=== PATIENT | female | born 1985 | race Caucasian/White ===

== ENCOUNTER → 2022-01-02 11:56 | Outpatient (CLI) | payer OTHER, SELFPAY | PROVIDERS: Referring Provider Internal Medicine; Visit Provider Internal Medicine | DX: Z23 Encounter for immunization (principal) | CPT/HCPCS: 90471; 90686 ==

== ENCOUNTER → 2022-07-09 14:50 | Outpatient (CLI) | payer OTHER, SELFPAY ==
[2022-07-14 17:06] LABS: QuantiFERON Mitogen Value >10.00 IU/mL (.); QuantiFERON Nil Value 0.06 IU/mL (.); QuantiFERON TB Gold Plus Negative (Negative); QuantiFERON TB1 Ag Value 0.07 IU/mL (.); QuantiFERON TB2 Ag Value 0.06 IU/mL (.)
== END ==
PROVIDERS: PCP Family Medicine; Referring Provider Dermatology; Visit Provider Dermatology
DX: L40.0 Psoriasis vulgaris (principal)
CPT/HCPCS: 36415; 86480

== ENCOUNTER → 2022-11-11 06:34 | Outpatient (CLI) | payer OTHER, SELFPAY ==
[2022-11-11 08:29] LABS: Add Manual Diff / Slide Review NO; Basophils Absolute Auto 0 /uL (0-100); Basophils Percent Auto 0.7 % (0-2); Eosinophils Absolute Auto 100 /uL (0-450); Eosinophils Percent Auto 2.3 % (2-4); Hematocrit 35.9 % (36-46); Hemoglobin 12.4 g/dL (12.0-16.0); Lymphocytes Absolute Auto 1600 /uL (1100-4500); Lymphocytes Percent Auto 26.5 % (25-40); Mean Corpuscular HGB Conc 34.5 % (30-36); Mean Corpuscular Hemoglobin 29.4 PG (26-34); Mean Corpuscular Volume 85.3 fL (80-100); Monocytes Absolute Auto 400 /uL (0-900); Neutrophils Absolute Auto 3800 /uL (1500-7000); Neutrophils Percent Auto 63.5 % (50-75); Platelet Count 296 X10^3/uL (150-400); Red Blood Cell Count 4.21 X10^6/uL (4.0-5.2); Red Cell Distribution Width 13.2 % (11.6-14.8); White Blood Cell Count 6.1 X10^3/uL (4.5-11.0)
[2022-11-11 08:32] LABS: Alanine Aminotransferase 19 IU/L (<35); Albumin 4.1 g/dL (3.5-5.0); Albumin Globulin Ratio 1.6 (1.0-2.8); Alkaline Phosphatase 58 U/L (38-126); Aspartate Aminotransferase 22 IU/L (14-36); BUN Creatinine Ratio 14.5 (6-22); Bilirubin Total 1.1 mg/dL (0.2-1.3); Blood Urea Nitrogen 12 mg/dL (7-17); Calcium 9.3 mg/dL (8.4-10.2); Carbon Dioxide 29 mmol/L (22-32); Chloride 100 mmol/L (98-107); Cholesterol 162 mg/dL (140-199); Estimated Glomerular Filt Rate > 60 mL/min (>60); Globulin 2.5 g/dL (1.7-4.1); Glucose 76 mg/dL (70-100); HDL Cholesterol 90 mg/dL (40-60); HEMOLYSIS < 15 (0-50); LDL Cholesterol Calculated 59 mg/dL (<100); Potassium 3.8 mmol/L (3.4-5.1); Sodium 135 mmol/L (137-145); Total Protein 6.6 g/dL (6.3-8.2); Triglycerides 63 mg/dL (35-150)
[2022-11-11 08:49] LABS: Creatinine Urine Random 291.7 mg/dL
[2022-11-11 08:54] LABS: Microalbumi Creatinin Ratio Ur 3.4 ug/mg CR (<30)
[2022-11-11 09:03] LABS: TSH w/ Reflex to FT4 1.29 uIU/mL (0.47-4.68)
== END ==
PROVIDERS: PCP Family Medicine; Referring Provider Family Medicine; Visit Provider Family Medicine
DX: F41.8 Other specified anxiety disorders (principal); F90.9 Attention-deficit hyperactivity disorder, unspecified type; L40.50 Arthropathic psoriasis, unspecified; L40.9 Psoriasis, unspecified; L68.0 Hirsutism
CPT/HCPCS: 36415; 80053; 80061; 82043; 82570; 84443; 85025

== ENCOUNTER → 2023-01-07 03:54 | Outpatient (CLI) | payer OTHER, SELFPAY | PROVIDERS: PCP Family Medicine; Referring Provider Family Medicine; Visit Provider Family Medicine | DX: Z23 Encounter for immunization (principal) | CPT/HCPCS: 90471; 90686 ==

== ENCOUNTER → 2023-05-17 10:25 | Outpatient (CLI) | payer OTHER, SELFPAY ==
[2023-05-17 11:08] LABS: Add Manual Diff / Slide Review NO; Basophils Absolute Auto 100 /uL (0-100); Basophils Percent Auto 0.8 % (0-2); Eosinophils Absolute Auto 0 /uL (0-450); Eosinophils Percent Auto 0.6 % (2-4); Hematocrit 38.3 % (36-46); Lymphocytes Absolute Auto 1100 /uL (1100-4500); Lymphocytes Percent Auto 17.6 % (25-40); Mean Corpuscular HGB Conc 33.9 % (30-36); Mean Corpuscular Hemoglobin 28.5 PG (26-34); Mean Corpuscular Volume 84.1 fL (80-100); Monocytes Absolute Auto 400 /uL (0-900); Monocytes Percent Auto 5.7 % (3-14); Neutrophils Absolute Auto 4600 /uL (1500-7000); Neutrophils Percent Auto 75.3 % (50-75); Platelet Count 290 X10^3/uL (150-400); Red Blood Cell Count 4.55 X10^6/uL (4.0-5.2); Red Cell Distribution Width 13.4 % (11.6-14.8); White Blood Cell Count 6.2 X10^3/uL (4.5-11.0)
[2023-05-17 12:15] LABS: Pregnancy Test Urine Negative (Negative)
[2023-05-17 12:18] LABS: Alanine Aminotransferase 18 IU/L (<35); Albumin 3.9 g/dL (3.5-5.0); Albumin Globulin Ratio 1.3 (1.0-2.8); Alkaline Phosphatase 56 U/L (38-126); Aspartate Aminotransferase 19 IU/L (14-36); BUN Creatinine Ratio 10.5 (6-22); Bilirubin Total 0.7 mg/dL (0.2-1.3); Blood Urea Nitrogen 8 mg/dL (7-17); Calcium 9.3 mg/dL (8.4-10.2); Carbon Dioxide 25 mmol/L (22-32); Chloride 104 mmol/L (98-107); Estimated Glomerular Filt Rate > 60 mL/min (>60); Globulin 2.9 g/dL (1.7-4.1); Glucose 94 mg/dL (70-100); HEMOLYSIS < 15 (0-50); Lipase 362 U/L (23-300); Phosphorous 2.6 mg/dL (2.5-4.5); Potassium 3.6 mmol/L (3.4-5.1); Sodium 138 mmol/L (137-145); Total Protein 6.8 g/dL (6.3-8.2)
[2023-05-17 12:24] LABS: Vitamin D 25 Hydroxy (D3) 42.7 ng/mL (30.0-100.0)
[2023-05-17 12:45] LABS: TSH w/ Reflex to FT4 0.79 uIU/mL (0.47-4.68)
[2023-05-17 13:06] LABS: Vitamin B12 > 1000 pg/mL (239-931)
== END ==
LOC: LAB 10:26
PROVIDERS: PCP Family Medicine; Referring Provider Family Medicine; Visit Provider Family Medicine
DX: Z90.3 Acquired absence of stomach [part of] (principal); R10.9 Unspecified abdominal pain; Z80.0 Family history of malignant neoplasm of digestive organs; K59.00 Constipation, unspecified; L40.50 Arthropathic psoriasis, unspecified; F41.8 Other specified anxiety disorders; F90.9 Attention-deficit hyperactivity disorder, unspecified type
CPT/HCPCS: 36415; 80053; 81025; 82306; 82607; 83690; 84100; 84443; 85025

== ENCOUNTER → 2023-05-18 07:51 | Outpatient (CLI) | payer OTHER, SELFPAY ==
[2023-05-21 14:08] LABS: Lactoferrin, Fecal Quant 65.23 ug/mL(g) (0.00-7.24)
[2023-05-21 16:08] LABS: Calprotectin, Stool 697 ug/g (0-120)
[2023-05-25 11:11] LABS: Pancreatic Elastase, Fecal 380 (>200)
== END ==
PROVIDERS: PCP Family Medicine; Referring Provider Family Medicine; Visit Provider Family Medicine
DX: Z90.3 Acquired absence of stomach [part of] (principal); R10.9 Unspecified abdominal pain; Z80.0 Family history of malignant neoplasm of digestive organs; L40.50 Arthropathic psoriasis, unspecified; K59.00 Constipation, unspecified; F41.8 Other specified anxiety disorders; F90.9 Attention-deficit hyperactivity disorder, unspecified type
CPT/HCPCS: 82656; 83631; 83993

== ENCOUNTER 2023-07-23 12:41 | Day surgery (SDC) | payer OTHER, SELFPAY ==
--- NOTE | 2023-07-23 | PATH_ITS ---
[facility] Accession Number: [id number] No. of containers..02 Tissue . 01 Material submitted: . PART A: ileum - TERMINAL ILEUM PART B: colon - RANDOM COLON BIOPSIES . 01 Diagnosis: A. TERMINAL ILEUM, BIOPSY: Ileal mucosa with reactive lymphoid hyperplasia. Negative for active inflammation, granulomas, dysplasia, or malignancy. . B. RANDOM COLON, BIOPSY: Colonic mucosa with no diagnostic abnormality. Negative for active, chronic, and microscopic colitis. Negative for dysplasia and malignancy. [facility] 07/30/2023 1421 Local . 01 Electronically signed: . Mian Coffman MD, PhD, Pathologist NPI- [id number] . 01 Gross description: . Part A: TERMINAL ILEUM: Received in formalin is 1 fragment(s) of krishnan, soft tissue measuring 0.4 x 0.4 x 0.2 cm submitted entirely in 1 cassette(s) Part B: RANDOM COLON BIOPSIES: Received in formalin are multiple fragment(s) of krishnan, soft tissue measuring 0.2 x 0.2 x 0.2 cm to 0.5 x 0.3 x 0.3 cm submitted entirely in 1 cassette(s) /SARAH 07/27/2023 0006 Local . 01 Pathologist provided ICD-10: R10.9, K59.00 . 01 CPT . 870488, 103199 Specimen Comment: A courtesy copy of this report has been sent to [phone] Performed at: 01 [facility] [address] [place] [id number] MD Vinicio Hooper MD Phone: [phone]
[2023-07-23 13:03] VITALS: BP 112/74; PULSE 89; RESP 18; TEMP 36.8; O2SAT 100
[2023-07-23] MEDS: LACTATED RINGERS 1,000 ML 42 ML IV (13:23)
--- NOTE | 2023-07-23 13:37 | PM.HP.1 ---
History of Present Illness History of Present Illness Date Patient Seen: 07/23/23 Time Patient Seen: 13:38 [place] [facility] [place]: 38-year-old woman family history of colon cancer and history of gastric sleeve here for diagnostic colonoscopy. No interval change in health, please refer to the H& P from June 2023 for further detail. [facility] Medical History Sinus tachycardia Hirsutism Psoriatic arthritis Mixed anxiety and depressive disorder Psoriasis Depression Anxiety ADHD (~2012) Chicken pox Endometriosis (~2004) Surgical History Anesthesia History of tonsillectomy (~1989) History of sinus surgery (~2019) Hx of laparoscopic gastric banding (~2014) H/O gastric sleeve (~2021) Family History Mother Mental health problem Brother Cancer Grandfather Cancer Grandmother Cancer Mental health problem Grandfather Stroke Social History marital status: number of children: 1 household members: spouse and children lives independently: Yes occupational status: employed Smoking Status: Never smoker alcohol intake: current substance use type: does not use Meds Home Medications and Allergies Home Medications Medication Instructions Recorded Confirmed Type betamethasone dipropionate 0.05 % 1 applic topical DAILY PRN 04/23/22 07/16/23 Rx topical cream psoriasis #45 grams secukinumab 150 mg/mL subcutaneous See Rx Instructions .Route 11/05/22 07/23/23 History pen injector (Cosentyx Pen 300 .COMPLEX psoriiasis mg/2 Pens () bupropion HCl 300 mg 24 hr tablet, 300 mg PO QAM #90 tabs 03/05/23 07/23/23 Rx extended release (Wellbutrin XL) alprazolam 0.5 mg tablet (Xanax) 0.5 mg PO BID PRN anxiety #30 tabs 03/12/23 07/23/23 Rx ondansetron 4 mg disintegrating 4 mg PO Q8H PRN nausea and 05/10/23 07/23/23 Rx tablet vomiting #90 tabs spironolactone 50 mg tablet 50 mg PO DAILY #90 tabs 05/10/23 07/23/23 Rx dextroamphetamine-amphetamine 20 20 mg PO BID #60 tabs 06/18/23 07/23/23 Rx mg tablet (Adderall) dextroamphetamine-amphetamine 20 20 mg PO BID #60 tabs 06/18/23 07/23/23 Rx mg tablet (Adderall) dextroamphetamine-amphetamine 20 20 mg PO BID #60 tabs 06/18/23 07/23/23 Rx mg tablet (Adderall) peg 3350-electrolytes 236 240 ml PO Q10M #4,000 mL 06/18/23 07/23/23 Rx gram-22.74 gram-6.74 gram-5.86 gram solution (Golytely) Allergies Allergy/AdvReac Type Severity Reaction Status Date / Time amoxicillin AdvReac Intermediate Nausea Verified 07/23/23 12:56 Exam Vital Signs (past 8 hours): - 07/23/23 13:03 Temperature 98.3 F Pulse Rate 89 Respiratory Rate 18 Blood Pressure 112/74 Pulse Oximetry 100 Oxygen Delivery Method Room Air Oxygen Delivery Method Room Air Narrative Exam Narrative: General adult woman alert oriented no acute distress Chest nonlabored respiration Extremities warm well perfused Assessment & Plan Assessment and plan (1) Abdominal pain: Qualifiers: Abdominal location: lower abdomen, unspecified Qualified Code(s): R10.30 - Lower abdominal pain, unspecified Status: Acute Assessment & Plan narrative: Diagnostic colonoscopy. Risks benefits alternatives reviewed.
[2023-07-23 14:32] VITALS: BP 88/57; PULSE 69; RESP 15; TEMP 36.2; O2SAT 100
--- NOTE | 2023-07-23 14:36 | P.OP.COLON_ITS ---
Operative Date/Time/Diagnoses Date of procedure: 07/23/23 Time of procedure: 14:36 Pre-op diagnosis: Abdominal pain Procedure & Clinicians Study performed: Diagnostic colonoscopy Same procedure as scheduled: Yes Indications: Abdominal pain Surgeon: Michelet Wheatley Procedure Notes Procedure in detail: The history and physical was performed/updated and the patient is ASA class is 2. The procedure was discussed in detail with the patient. Potential risks complications including infection, bleeding, missed diagnosis, perforation, need for surgery, and were explained. Their questions were answered and informed consent was obtained. Patient was brought to the procedure room and placed standard monitoring equipment. The patient's vital signs were monitored continuously throughout the entire procedure. Prior to starting time-out was performed. The patient was placed in the left lateral recumbent position. Procedural sedation was administered by anesthesia. Examination began with a thorough inspection of the perianal area there was no evidence of fissures, fistulae, external hemorrhoids or cutaneous malignancy. The colonoscopy scope was then placed into the anal canal and was advanced to the cecum, which was identified by the ileocecal valve, the appendiceal orifice and the confluence of the taenia. Terminal ileum was intubated and biopsies were taken with forceps. The scope was then slowly withdrawn examining colon thoroughly in all directions, irrigating it of any residual stool. Random colonic biopsies were taken with forceps. The scope was retroflexed within the rectum The patient tolerated the procedure well. They will be discharged once criteria are met. The prep was of good/excellent quality. The withdrawl time was 7 minutes. FINDINGS * Unremarkable colonoscopy. No masses polyps or inflammation. * Unremarkable terminal ileum Specimen(s): other (Terminal ileum, random colonic biopsies) Impression: Normal colonoscopy Post-procedure Plan for aftercare: Will update with pathology results Disposition: same day surgery
[2023-07-23 14:38] VITALS: BP 99/58; PULSE 71; RESP 18; O2SAT 100
[2023-07-23 14:42] VITALS: BP 96/57; PULSE 70; RESP 16; O2SAT 100
[2023-07-23 14:47] VITALS: BP 98/59; PULSE 67; RESP 21; TEMP 36.7; O2SAT 100
== END 2023-07-23 15:10 | disposition home or self-care (01) ==
PROVIDERS: PCP Family Medicine; Referring Provider Surgery; Visit Provider Surgery
PROC: 0DJD8ZZ Inspection of Lower Intestinal Tract, Via Natural or Artificial Opening Endoscopic (ICD-10-PCS; CPT 45378; principal; 2023-07-23 13:30)
DX: R10.30 Lower abdominal pain, unspecified (principal); Z80.0 Family history of malignant neoplasm of digestive organs; K59.00 Constipation, unspecified
CPT/HCPCS: 45380; J2704

== ENCOUNTER → 2023-09-20 16:17 | Outpatient (CLI) | payer OTHER, SELFPAY ==
[2023-09-21 22:38] LABS: QuantiFERON Mitogen Value >10.00 IU/mL (.); QuantiFERON Nil Value 0.03 IU/mL (.); QuantiFERON TB Gold Plus Negative (Negative); QuantiFERON TB1 Ag Value 0.05 IU/mL (.); QuantiFERON TB2 Ag Value 0.05 IU/mL (.)
== END ==
PROVIDERS: PCP Family Medicine; Referring Provider Dermatology; Visit Provider Dermatology
DX: L40.0 Psoriasis vulgaris (principal)
CPT/HCPCS: 36415; 86480

== ENCOUNTER → 2024-01-14 17:59 | Outpatient (CLI) | payer OTHER, SELFPAY | PROVIDERS: PCP Family Medicine; Referring Provider Internal Medicine; Visit Provider Internal Medicine | DX: Z23 Encounter for immunization (principal) | CPT/HCPCS: 90471; 90656 ==

== ENCOUNTER → 2024-01-19 14:19 | Outpatient (CLI) | payer OTHER, SELFPAY ==
[2024-01-19 15:50] LABS: COVID-19 CEPHEID 4-PLEX PCR Negative (Negative); Influenza A - CEPHEID Flu A NEGATIVE (NEGATIVE); Influenza B - CEPHEID Flu B NEGATIVE (NEGATIVE); Respiratory Syncytial Virus Negative (Negative)
== END ==
PROVIDERS: PCP Family Medicine; Visit Provider Nurse Practitioner Family
DX: R05.1 Acute cough (principal)
CPT/HCPCS: 0241U

== ENCOUNTER → 2024-05-24 06:53 | Outpatient (CLI) | payer OTHER, SELFPAY ==
[2024-05-24 08:39] LABS: Add Manual Diff / Slide Review NO; Basophils Absolute Auto 100 /uL (0-100); Basophils Percent Auto 1.1 % (0-2); Eosinophils Absolute Auto 100 /uL (0-450); Eosinophils Percent Auto 2.1 % (2-4); Hematocrit 36.5 % (36-46); Hemoglobin 12.2 g/dL (12.0-16.0); Lymphocytes Absolute Auto 1300 /uL (1100-4500); Lymphocytes Percent Auto 20.2 % (25-40); Mean Corpuscular HGB Conc 33.3 % (30-36); Mean Corpuscular Hemoglobin 28.1 PG (26-34); Mean Corpuscular Volume 84.2 fL (80-100); Monocytes Absolute Auto 400 /uL (0-900); Monocytes Percent Auto 6.5 % (3-14); Neutrophils Absolute Auto 4400 /uL (1500-7000); Neutrophils Percent Auto 70.1 % (50-75); Platelet Count 285 X10^3/uL (150-400); Red Blood Cell Count 4.33 X10^6/uL (4.0-5.2); Red Cell Distribution Width 13.7 % (11.6-14.8); White Blood Cell Count 6.3 X10^3/uL (4.5-11.0)
[2024-05-24 08:55] LABS: Alanine Aminotransferase 32 IU/L (<35); Albumin 4.3 g/dL (3.5-5.0); Albumin Globulin Ratio 1.6 (1.0-2.8); Alkaline Phosphatase 50 U/L (38-126); Aspartate Aminotransferase 40 IU/L (14-36); BUN Creatinine Ratio 16.1 (6-22); Bilirubin Total 1.3 mg/dL (0.2-1.3); Blood Urea Nitrogen 14 mg/dL (7-17); Calcium 9.2 mg/dL (8.4-10.2); Carbon Dioxide 24 mmol/L (22-32); Chloride 104 mmol/L (98-107); Cholesterol 190 mg/dL (140-199); Estimated Glomerular Filt Rate > 60 mL/min (>60); Globulin 2.7 g/dL (1.7-4.1); Glucose 87 mg/dL (70-100); HDL Cholesterol 88 mg/dL (40-60); HEMOLYSIS < 15 (0-50); LDL Cholesterol Calculated 90 mg/dL (<100); Sodium 134 mmol/L (137-145); Triglycerides 60 mg/dL (35-150)
[2024-05-24 09:26] LABS: TSH w/ Reflex to FT4 1.46 uIU/mL (0.47-4.68)
[2024-05-25 04:39] LABS: Apolipoprotein B 76 mg/dL (<90)
== END ==
PROVIDERS: PCP Family Medicine; Referring Provider Family Medicine; Visit Provider Family Medicine
DX: R00.0 Tachycardia, unspecified (principal); F41.8 Other specified anxiety disorders; L40.50 Arthropathic psoriasis, unspecified; Z80.0 Family history of malignant neoplasm of digestive organs; F90.9 Attention-deficit hyperactivity disorder, unspecified type
CPT/HCPCS: 36415; 80053; 80061; 82172; 84443; 85025

== ENCOUNTER → 2024-07-13 09:07 | Outpatient (CLI) | payer OTHER, SELFPAY ==
[2024-07-13 09:37] LABS: Add Manual Diff / Slide Review NO; Basophils Absolute Auto 0 /uL (0-100); Basophils Percent Auto 0.5 % (0-2); Eosinophils Absolute Auto 0 /uL (0-450); Eosinophils Percent Auto 0.5 % (2-4); Hematocrit 36.3 % (36-46); Hemoglobin 12.3 g/dL (12.0-16.0); Lymphocytes Absolute Auto 1500 /uL (1100-4500); Lymphocytes Percent Auto 18.1 % (25-40); Mean Corpuscular HGB Conc 33.9 % (30-36); Mean Corpuscular Volume 82.8 fL (80-100); Monocytes Absolute Auto 500 /uL (0-900); Monocytes Percent Auto 5.6 % (3-14); Neutrophils Absolute Auto 6100 /uL (1500-7000); Neutrophils Percent Auto 75.3 % (50-75); Platelet Count 359 X10^3/uL (150-400); Red Blood Cell Count 4.38 X10^6/uL (4.0-5.2); Red Cell Distribution Width 15.2 % (11.6-14.8); White Blood Cell Count 8.1 X10^3/uL (4.5-11.0)
[2024-07-13 10:26] LABS: Alanine Aminotransferase 21 IU/L (<35); Albumin 4.6 g/dL (3.5-5.0); Albumin Globulin Ratio 1.8 (1.0-2.8); Alkaline Phosphatase 63 U/L (38-126); Aspartate Aminotransferase 24 IU/L (14-36); BUN Creatinine Ratio 15.6 (6-22); Bilirubin Total 1.1 mg/dL (0.2-1.3); Blood Urea Nitrogen 14 mg/dL (7-17); Calcium 9.8 mg/dL (8.4-10.2); Carbon Dioxide 22 mmol/L (22-32); Chloride 103 mmol/L (98-107); Estimated Glomerular Filt Rate > 60 mL/min (>60); Globulin 2.6 g/dL (1.7-4.1); Glucose 96 mg/dL (70-100); HEMOLYSIS < 15 (0-50); Potassium 3.5 mmol/L (3.4-5.1); Sodium 135 mmol/L (137-145); Total Protein 7.2 g/dL (6.3-8.2)
[2024-07-13 15:43] LABS: HIV 1 & 2 Ab/Ag 4th Gen Combo NEGATIVE (NEGATIVE); Hep C Virus Ab w/Reflex Quant NEGATIVE s/c (NEGATIVE)
[2024-07-15 03:39] LABS: Hepatitis B Surf Ab Qualitativ Reactive (.)
[2024-07-16 22:36] LABS: QuantiFERON Mitogen Value >10.00 IU/mL (.); QuantiFERON Nil Value 0.03 IU/mL (.); QuantiFERON TB Gold Plus Negative (Negative); QuantiFERON TB1 Ag Value 0.07 IU/mL (.); QuantiFERON TB2 Ag Value 0.07 IU/mL (.)
== END ==
PROVIDERS: PCP Family Medicine; Referring Provider Dermatology; Visit Provider Dermatology
DX: L40.0 Psoriasis vulgaris (principal); R74.8 Abnormal levels of other serum enzymes
CPT/HCPCS: 36415; 80053; 85025; 86480; 86706; 86803; 87389